=== PATIENT | female | born 1970 | race African-American/Black ===

== ENCOUNTER → 2017-10-03 | Outpatient (CLI) | payer BC ==
[2017-10-03 09:17] LABS: ABSOLUTE LYMPHOCYTES (AUTO) 3.1 10^3/uL (0.5-4.7); ABSOLUTE MONOCYTES (AUTO) 0.8 10^3/uL (0.1-1.4); ABSOLUTE NEUT (AUTO) 3.7 10^3/uL (1.7-8.2); BASOPHILS % (AUTO) 0.4 % (0-2); EOSINOPHILS % (AUTO) 0.6 % (0-6); HEMATOCRIT 34.8 % (36.0-47.0); HEMOGLOBIN 11.3 g/dL (12.0-15.5); LYMPHOCYTES % (AUTO) 40.7 % (13-45); MEAN CORPUSCULAR HGB CONC 32.4 g/dL (32.0-36.0); MEAN CORPUSCULAR VOLUME 71 fl (80-97); MONOCYTES % (AUTO) 9.8 % (3-13); PLATELET COUNT 296 10^3/uL (150-450); RED BLOOD COUNT 4.92 10^6/uL (3.72-5.28); RED CELL DISTRIBUTION WIDTH 19.4 % (11.5-14.0); SEGMENTED NEUTROPHILS % (AUTO) 48.5 % (42-78); TOTAL CELLS COUNTED % (AUTO) 100 %; WHITE BLOOD COUNT 7.6 10^3/uL (4.0-10.5)
[2017-10-03 09:35] LABS: ALANINE AMINOTRANSFERASE 17 U/L (9-52); ALBUMIN 3.9 g/dL (3.5-5.0); ALKALINE PHOSPHATASE 101 U/L (38-126); ANION GAP 13 (5-19); ASPARTATE AMINO TRANSFERASE 19 U/L (14-36); BILIRUBIN,DIRECT 0.2 mg/dL (0.0-0.4); BILIRUBIN,TOTAL 0.2 mg/dL (0.2-1.3); BLOOD UREA NITROGEN 16 mg/dL (7-20); CALCIUM 9.3 mg/dL (8.4-10.2); CARBON DIOXIDE 27 mmol/L (22-30); CHLORIDE 105 mmol/L (98-107); CHOLESTEROL 230.26 mg/dL (0-200); GLUCOSE 109 mg/dL (75-110); POTASSIUM 4.2 mmol/L (3.6-5.0); SODIUM 144.7 mmol/L (137-145); TOTAL PROTEIN 7.9 g/dL (6.3-8.2); TRIGLYCERIDES 92 mg/dL (<150)
[2017-10-03 09:45] LABS: DIRECT LDL 162 mg/dL (<100)
== END ==
LOC: OD 08:18
PROVIDERS: ATTEND Internal Medicine
DX: Z68.41 Body mass index [BMI] 40.0-44.9, adult (principal)
CPT/HCPCS: 36415; 80053; 80061; 82652; 83735; 84443; 85025

== ENCOUNTER → 2018-03-30 | Outpatient (CLI) | payer BC ==
--- NOTE | 2018-03-30 13:06 | RADIOLOGY REPORT (SQ) ---
EXAM DESCRIPTION: CT HEAD WITHOUT COMPLETED DATE/TIME: 03/30/2018 12:46 pm REASON FOR STUDY: TIA (G45.9) I63.9 CEREBRAL INFARCTION, UNSPECIFIED COMPARISON: None. TECHNIQUE: Axial images acquired through the brain without intravenous contrast. Images reviewed wi th bone, brain and subdural windows. Additional sagittal and coronal reconstructions were generated. Images stored on PACS. All CT scanners at this facility use dose modulation, iterative reconstruction, and/or weight based d osing when appropriate to reduce radiation dose to as low as reasonably achievable (ALARA). [facility]: Dose Right [facility]: CareDose [facility]: Dose Right [facility]: Teradose 4D [facility]: Smart [employer]Ride RADIATION DOSE: CT Rad equipment meets quality standard of care and radiation dose reduction techniq ues were employed. CTDIvol: 48.6 mGy. DLP: 929 mGy-cm. mGy. LIMITATIONS: None. FINDINGS: VENTRICLES: Normal size and contour. CEREBRUM: No masses. No hemorrhage. No midline shift. No evidence for acute infarction. Normal gra y/white matter differentiation. No areas of low density in the white matter. CEREBELLUM: No masses. No hemorrhage. No alteration of density. No evidence for acute infarction. EXTRAAXIAL SPACES: No fluid collections. No masses. ORBITS AND GLOBE: No intra- or extraconal masses. Normal contour of globe without masses. CALVARIUM: No fracture. PARANASAL SINUSES: No fluid levels. SOFT TISSUES: No mass or hematoma. OTHER: No other significant finding. IMPRESSION: NORMAL BRAIN CT WITHOUT CONTRAST. EVIDENCE OF ACUTE STROKE: NO. COMMENT: Quality ID # [id number]: Final reports with documentation of one or more dose reduction techniques (e.g., Automated exposure control, adjustment of the mA and/or kV according to patient size, use of iterative reconstruction technique) TECHNICAL DOCUMENTATION: JOB ID: [id number] [employer]- All Rights Reserved Reading location - IP/workstation name: [email or web address]
== END ==
LOC: RAD 12:23
PROVIDERS: ATTEND Internal Medicine
DX: G45.9 Transient cerebral ischemic attack, unspecified (principal)
CPT/HCPCS: 70450

== ENCOUNTER → 2018-08-27 | Outpatient (CLI) | payer BC ==
[2018-08-27 18:22] LABS: A TYPE INFLUENZA AG NEGATIVE (NEGATIVE); B INFLUENZA AG NEGATIVE (NEGATIVE)
== END ==
LOC: OD 16:50
PROVIDERS: ATTEND Internal Medicine
DX: J11.1 Influenza due to unidentified influenza virus with other respiratory manifestations (principal)
CPT/HCPCS: 87804

== ENCOUNTER 2019-02-22 08:10 | Inpatient (IN) | payer BC ==
[2019-02-22] MEDS ORDERED: LABETALOL HCL INJ 20 MG/4 ML DISP.SYRIN IV ONE ×2 (08:27→08:28)
--- NOTE | 2019-02-22 08:36 | ER Document Report ---
ED Neuro Symptoms/Deficit - General Chief Complaint: Slurred Speech Stated Complaint: SLURRED SPEECH,CONFUSION Time Seen by Provider: 02/22/19 08:18 Notes: 48-year-old female with hypertension and positive family history for CVA to include mother and sibling presents to the emergency department with slurred speech, right-sided weakness, right-sided facial droop. Last known normal 12:30 AM February 22. Daughter at bedside providing some history. She said they noticed slurred speech and right-sided weakness when she woke up. Patient had difficulty ambulating. TRAVEL OUTSIDE OF THE [place] IN LAST 30 DAYS: No - Related Data Allergies/Adverse Reactions: No Known Allergies Allergy (Verified 02/22/19 09:17) Past Medical History - Social History Smoking Status: Unknown if Ever Smoked Family History: CVA, Hypertension Review of Systems - Review of Systems Constitutional: No symptoms reported EENT: No symptoms reported Cardiovascular: See HPI Respiratory: No symptoms reported Gastrointestinal: No symptoms reported Genitourinary: No symptoms reported Female Genitourinary: No symptoms reported Musculoskeletal: No symptoms reported Skin: No symptoms reported Hematologic/Lymphatic: No symptoms reported Neurological/Psychological: See HPI Physical Exam - Vital signs Vitals: Temp Pulse Resp BP Pulse Ox 98.1 F 80 18 171/112 H 97 02/22/19 08:23 02/22/19 08:23 02/22/19 08:23 02/22/19 08:23 02/22/19 08:23 - Notes Notes: PHYSICAL EXAMINATION: Reviewed vital signs and charting by RN GENERAL: Alert, interacts well. No acute distress. HEAD: Normocephalic, atraumatic. EYES: Pupils equal and round. Extraocular movements intact. ENT: Oral mucosa moist, tongue midline. NECK: Full range of motion. Trachea midline. LUNGS: Clear to auscultation bilaterally, no wheezes, rales, or rhonchi. No respiratory distress. HEART: Regular rate and rhythm. No murmur ABDOMEN: soft, non-tender. No distention. Bowel sounds present EXTREMITIES: Moves all 4 extremities spontaneously. No edema, No cyanosis. NEURO: A &O X 3, slurred speech, PERRL, EOMI, SILT, follows commands in all 4 extremities, no gross abnormalities of cranial nerves, facial droop, mild right pronator drift PSYCH: Normal affect, normal mood. SKIN: Warm, dry, normal turgor. No rashes or lesions noted. Course - Re-evaluation Re-evalutation: 02/22/19 09:00 Patient presents with concerns for an acute CVA presenting 8 hours from last known normal. CT head without negative for any acute intracranial bleed. Mends score 7, NIH score 9. 02/22/19 10:24 Discussed with attending and a CTA head and neck was ordered to ensure there is no large vessel occlusion which could be amendable to an intervention. This is still pending. Patient mildly anemic with mildly elevated coagulation factors. CMP hemolyzed and is still pending. No improvement in neurological symptoms at this time. 02/22/19 12:55 CMP overall within normal limits, CTA head and neck did not show any large vessel occlusion. I spoke with Dr. Hawthorne who accepted the patient to the [facility] and asked that I do consult neurology for any further guidance. I spoke with Dr. Wolff, neurologist at [facility], who stated that it will be medical management but to consider a hypercoagulable work-up. I relayed this information to Dr. Hawthorne and the patient is admitted to the [facility]. - Vital Signs Vital signs: Temp Pulse Resp BP Pulse Ox 98.1 F 80 16 193/119 H 98 02/22/19 08:23 02/22/19 08:23 02/22/19 12:02 02/22/19 12:02 02/22/19 12:02 - Laboratory Result Diagrams: 02/22/19 08:33 02/22/19 09:43 Laboratory results interpreted by me: 02/22/19 02/22/19 02/22/19 08:26 08:33 08:33 Hgb 10.8 L Hct 33.5 L MCV 74 L MCH 23.8 L RDW 18.6 H Baso % (Auto) 2.5 H PT 15.8 H APTT 23.4 L POC Glucose 115 H Creatine Kinase 02/22/19 09:43 Hgb Hct MCV MCH RDW Baso % (Auto) PT APTT POC Glucose Creatine Kinase 156 H Discharge - Discharge Clinical Impression: CVA (cerebral vascular accident) Qualifiers: CVA mechanism: unspecified Qualified Code(s): I63.9 - Cerebral infarction, unspecified Condition: Stable Disposition: ADMITTED INPATIENT Admitting Provider: Marine (Hospitalist) Unit Admitted: IMCU
--- NOTE | 2019-02-22 08:42 | RADIOLOGY REPORT (SQ) ---
EXAM DESCRIPTION: CT HEAD WITHOUT COMPLETED DATE/TIME: 02/22/2019 8:26 am REASON FOR STUDY: concern CVA COMPARISON: None. TECHNIQUE: Axial images acquired through the brain without intravenous contrast. Images reviewed wi th bone, brain and subdural windows. Additional sagittal and coronal reconstructions were generated. Images stored on PACS. All CT scanners at this facility use dose modulation, iterative reconstruction, and/or weight based d osing when appropriate to reduce radiation dose to as low as reasonably achievable (ALARA). [facility]: Dose Right [facility]: CareDose [facility]: Dose Right [facility]: Teradose 4D [facility]: [employer] RADIATION DOSE: 990 mGy cm LIMITATIONS: None. FINDINGS: VENTRICLES: Normal size and contour. CEREBRUM: No masses. No hemorrhage. No midline shift. No evidence for acute infarction. Normal gra y/white matter differentiation. No areas of low density in the white matter. CEREBELLUM: No masses. No hemorrhage. No alteration of density. No evidence for acute infarction. EXTRAAXIAL SPACES: No fluid collections. No masses. ORBITS AND GLOBE: No intra- or extraconal masses. Normal contour of globe without masses. CALVARIUM: No fracture. PARANASAL SINUSES: No fluid or mucosal thickening. SOFT TISSUES: No mass or hematoma. OTHER: No other significant finding. IMPRESSION: No CT evidence of acute stroke or hemorrhage. EVIDENCE OF ACUTE STROKE: NO. COMMENT: Quality ID # 436: Final reports with documentation of one or more dose reduction techniques (e.g., Automated exposure control, adjustment of the mA and/or kV according to patient size, use of iterative reconstruction technique) TECHNICAL DOCUMENTATION: JOB ID: [id number] [employer]- All Rights Reserved Reading location - IP/workstation name: [email or web address]
[2019-02-22 08:48] LABS: ABSOLUTE BASOPHILS # (AUTO) 0.2 10^3/uL (0.0-0.2); ABSOLUTE EOSINOPHILS # (AUTO) 0.1 10^3/uL (0.0-0.6); ABSOLUTE LYMPHOCYTES (AUTO) 2.5 10^3/uL (0.5-4.7); ABSOLUTE MONOCYTES (AUTO) 0.5 10^3/uL (0.1-1.4); ABSOLUTE NEUT (AUTO) 3.8 10^3/uL (1.7-8.2); BASOPHILS % (AUTO) 2.5 % (0-2); HEMATOCRIT 33.5 % (36.0-47.0); HEMOGLOBIN 10.8 g/dL (12.0-15.5); LYMPHOCYTES % (AUTO) 35.5 % (13-45); MEAN CORPUSCULAR HEMOGLOBIN 23.8 pg (27.0-33.4); MEAN CORPUSCULAR HGB CONC 32.3 g/dL (32.0-36.0); MEAN CORPUSCULAR VOLUME 74 fl (80-97); MONOCYTES % (AUTO) 6.8 % (3-13); RED BLOOD COUNT 4.55 10^6/uL (3.72-5.28); RED CELL DISTRIBUTION WIDTH 18.6 % (11.5-14.0); SEGMENTED NEUTROPHILS % (AUTO) 54.2 % (42-78); TOTAL CELLS COUNTED % (AUTO) 100 %
[2019-02-22 08:50] LABS: INTERNATIONAL RATION (INR) 1.25; PROTHROMBIN TIME 15.8 SEC (11.4-15.4)
[2019-02-22 08:51] LABS: PARTIAL THROMBOPLASTIN TIME 23.4 SEC (23.5-35.8)
[2019-02-22 09:05] LABS: PLATELET COUNT 339 10^3/uL (150-450)
[2019-02-22] MEDS ORDERED: ACETAMINOPHEN 650 MG SUPP.RECT PR ONE (09:26)
--- NOTE | 2019-02-22 09:38 | RADIOLOGY REPORT (SQ) ---
EXAM DESCRIPTION: CHEST SINGLE VIEW COMPLETED DATE/TIME: 02/22/2019 9:01 am REASON FOR STUDY: CVA COMPARISON: None. NUMBER OF VIEWS: One view. TECHNIQUE: Single frontal radiographic view of the chest acquired. LIMITATIONS: None. FINDINGS: LUNGS AND PLEURA: No opacities, masses or pneumothorax. No pleural effusion. MEDIASTINUM AND HILAR STRUCTURES: No masses. Contour normal. HEART AND VASCULAR STRUCTURES: Heart normal in size. Normal vasculature. BONES: No acute findings. HARDWARE: None in the chest. OTHER: No other significant finding. IMPRESSION: NO SIGNIFICANT RADIOGRAPHIC FINDING IN THE CHEST. TECHNICAL DOCUMENTATION: JOB ID: [id number] [employer]- All Rights Reserved Reading location - IP/workstation name: [email or web address]
[2019-02-22] MEDS ORDERED: FENTANYL CITRATE INJ/PF 100 MCG/2 ML AMPUL IV ONE (09:52)
[2019-02-22 10:09] LABS: APPEARANCE,URINE CLEAR; BILIRUBIN,URINE NEGATIVE (NEGATIVE); COLOR,URINE STRAW; GLUCOSE, URINE NEGATIVE (NEGATIVE); KETONES,URINE NEGATIVE (NEGATIVE); LEUKOCYTE ESTERASE,URINE NEGATIVE (NEGATIVE); NITRITE,URINE NEGATIVE (NEGATIVE); PROTEIN,URINE NEGATIVE (NEGATIVE); URINE SPECIFIC GRAVITY 1.009; UROBILINOGEN,URINE NEGATIVE mg/dL (<2.0)
[2019-02-22 10:51] LABS: ALBUMIN 3.8 g/dL (3.5-5.0); ALKALINE PHOSPHATASE 107 U/L (38-126); ANION GAP 10 (5-19); ASPARTATE AMINO TRANSFERASE 24 U/L (14-36); BILIRUBIN,DIRECT 0.2 mg/dL (0.0-0.4); BILIRUBIN,TOTAL 0.3 mg/dL (0.2-1.3); BLOOD UREA NITROGEN 10 mg/dL (7-20); CARBON DIOXIDE 26 mmol/L (22-30); CHLORIDE 104 mmol/L (98-107); CREATINE KINASE 156 U/L (30-135); GLUCOSE 110 mg/dL (75-110); POTASSIUM 3.6 mmol/L (3.6-5.0); TOTAL PROTEIN 7.7 g/dL (6.3-8.2)
--- NOTE | 2019-02-22 12:18 | RADIOLOGY REPORT (SQ) ---
EXAM DESCRIPTION: CTA HEAD COMPLETED DATE/TIME: 02/22/2019 11:59 am REASON FOR STUDY: ?cva COMPARISON: None. TECHNIQUE: Post IV contrast scanning, thin section axial imaging through the brain to evaluate the a rterial structures. Source and MIP images are saved and reviewed on PACS. Advanced 3D imaging as volume-rendering, MIPs, SSD performed? yes All CT scanners at this facility use dose modulation, iterative reconstruction, and/or weight based d osing when appropriate to reduce radiation dose to as low as reasonably achievable (ALARA). [facility]: Dose Right [facility]: CareDose [facility]: Dose Right [facility]: Teradose 4D [facility]: [employer] CONTRAST TYPE AND DOSE: contrast/concentration: Isovue 350.00 mg/ml; Total Contrast Delivered: 70.0 ml; Total Saline Delivered: 65.5 ml RENAL FUNCTION: GFR > 60. LIMITATIONS: None. FINDINGS: [place]: The anterior, middle, posterior cerebral arteries are all patent. No ev idence of aneurysm or focal stenosis. POSTERIOR CIRCULATION: The distal vertebral arteries are patent as is the basilar artery. No aneurysm . BRAIN: No gross enhancing lesions as visualized. The superior cerebral hemispheres are not included in the field of view. BONES: Intact as visualized. SINUSES: No fluid or mucosal thickening. OTHER: No other significant finding. IMPRESSION: NO CTA EVIDENCE OF STENOSIS OR ANEURYSM OF THE [place]. TECHNICAL DOCUMENTATION: JOB ID: [id number] Quality ID # 436: Final reports with documentation of one or more dose reduction techniques (e.g., Au tomated exposure control, adjustment of the mA and/or kV according to patient size, use of iterative reconstruction technique) 2010 [employer]- All Rights Reserved Reading location - IP/workstation name: [email or web address]
--- NOTE | 2019-02-22 12:20 | RADIOLOGY REPORT (SQ) ---
EXAM DESCRIPTION: CTA NECK COMPLETED DATE/TIME: 02/22/2019 11:59 am REASON FOR STUDY: ?cva COMPARISON: None. TECHNIQUE: Axial dynamic scanning technique with dynamic contrast enhancement through the extra-barrel scraper nial carotid and vertebral arteries. Multiplanar reconstruction. 3-D MIPS and Volume-rendered imag es acquired at the workstation and saved to PACS. Images are reviewed in soft tissue, bone, lung w indows. All CT scanners at this facility use dose modulation, iterative reconstruction, and/or weight based d osing when appropriate to reduce radiation dose to as low as reasonably achievable (ALARA). [facility]: Dose Right [facility]: CareDose [facility]: Dose Right [facility]: Teradose 4D [facility]: Rewind Me CONTRAST TYPE AND DOSE: See separate report of the same date. RENAL FUNCTION: GFR > 60. LIMITATIONS: None. FINDINGS: AORTIC ARCH: Normal three-vessel origin. Bilateral subclavian arteries are patent. No d issection. RIGHT CAROTIDS: Patent common, internal and external carotid arteries without suggestion of significa nt stenosis or irregular plaque. No dissection. RIGHT VERTEBRAL: Patent. No dissection. LEFT CAROTIDS: Patent common, internal and external carotid arteries without suggestion of significan t stenosis or irregular plaque. Tonsillar loop left ICA. No dissection. LEFT VERTEBRAL: Patent. No dissection. OTHER: No other significant finding. OTHER: 3-D reconstructions confirm findings. IMPRESSION: NORMAL CTA OF THE EXTRA-CRANIAL CAROTID AND VERTEBRAL ARTERIES. COMMENT: Quality ID #[id number]: Measurements of distal internal carotid diameter were used as the denomina tor for stenosis measurement. TECHNICAL DOCUMENTATION: JOB ID: [id number] Quality ID # 436: Final reports with documentation of one or more dose reduction techniques (e.g., Au tomated exposure control, adjustment of the mA and/or kV according to patient size, use of iterative reconstruction technique) 2010 [employer]- All Rights Reserved Reading location - IP/workstation name: [email or web address]
[2019-02-22] MEDS ORDERED: HYDRALAZINE HCL INJ/PF 20 MG/1 ML SDV IV PRN (13:14)
[2019-02-22] MEDS ORDERED: KETOROLAC TROMETHAMINE INJ/PF 30 MG/1 ML SDV IV PRN (13:31)
--- NOTE | 2019-02-22 13:31 | PDOC H&P ---
History of Present Illness Admission Date/PCP: 02/22/19 13:02 Patient complains of: RSW, slurred speech History of Present Illness: CJ CLIFFORD is a 48 year old female with a past medical history of hypertension and hyperlipidemia who presented with right-sided weakness and slurred speech. Patient's daughters are on the bedside. They report that she was apparently fine and went to bed last night at around 12 AM. They noticed that when she woke up around 6 this morning, she was having slurred speech and was not able to move her right arm and right leg well. In the ER, CT of the head and CT of the head and neck were unremarkable. She was noted to have significant elevated blood pressures. Upon encounter, her speech seems to have significantly im proved. She has 3/5 weakness on the right arm and and 4/5 on the right leg. She says that she feels her right arm and leg are a bit stronger now. She denies chest pain or shortness of breath. She relates that her brother had a stroke in his 30s and her mother also had a stroke in her late 40s. She does admit that she has not been well compliant to his antihypertensives at home. Past Medical History Cardiac Medical History: Reports: Hyperlipidema, Hypertension Past Surgical History Past Surgical History: Reports: Section Social History Smoking Status: Unknown if Ever Smoked Family History Family History: CVA, Hypertension Parental Family History Reviewed: Yes - History of CVA in the family as noted above Children Family History Reviewed: No Sibling(s) Family History Reviewed.: No Medication/Allergy Allergies/Adverse Reactions: No Known Allergies Allergy (Verified 02/22/19 09:17) Review of Systems All systems: reviewed and no additional remarkable complaints except as stated - As mentioned in HPI Physical Exam Vital Signs: Temp Pulse Resp BP Pulse Ox 98.1 F 80 16 193/119 H 98 02/22/19 08:23 02/22/19 08:23 02/22/19 12:02 02/22/19 12:02 02/22/19 12:02 Intake & Output 02/21/19 02/22/19 02/23/19 06:59 06:59 06:59 Weight 196 lb 6.91 oz General appearance: PRESENT: no acute distress, well-developed, well-nourished Head exam: PRESENT: atraumatic, normocephalic Eye exam: PRESENT: conjunctiva pink, EOMI, PERRLA. ABSENT: scleral icterus Ear exam: PRESENT: normal external ear exam Mouth exam: PRESENT: moist, tongue midline Neck exam: ABSENT: carotid bruit, JVD, lymphadenopathy, thyromegaly Respiratory exam: PRESENT: clear to auscultation michael. ABSENT: rales, rhonchi, wheezes Cardiovascular exam: PRESENT: RRR. ABSENT: diastolic murmur, rubs, systolic murmur Pulses: PRESENT: normal dorsalis pedis pul GI/Abdominal exam: PRESENT: normal bowel sounds, soft. ABSENT: distended, guarding, mass, organolmegaly, rebound, tenderness Rectal exam: PRESENT: deferred Neurological exam: PRESENT: alert, awake, oriented to person, oriented to place, oriented to time, oriented to situation, motor sensory deficit - She has 3/5 weakness on the right arm and and 4/5 on the right leg. Results Laboratory Results: 02/22/19 08:33 02/22/19 09:43 02/22/19 02/22/19 02/22/19 08:33 08:33 09:42 WBC 7.0 RBC 4.55 Hgb 10.8 L Hct 33.5 L MCV 74 L MCH 23.8 L MCHC 32.3 RDW 18.6 H Plt Count 339 Seg Neutrophils % 54.2 Sodium Cancelled Potassium Cancelled Chloride Cancelled Carbon Dioxide Cancelled Anion Gap Cancelled BUN Cancelled Creatinine Cancelled Est GFR ( Amer) Cancelled Est GFR (Non-Af Amer) Cancelled Glucose Cancelled Calcium Cancelled Total Bilirubin Cancelled AST Cancelled Alkaline Phosphatase Cancelled Total Protein Cancelled Albumin Cancelled Urine Color STRAW Urine Appearance CLEAR Urine pH 7.0 Ur Specific Sumner 1.009 Urine Protein NEGATIVE Urine Glucose (UA) NEGATIVE Urine Ketones NEGATIVE Urine Blood NEGATIVE Urine Nitrite NEGATIVE Ur Leukocyte Esterase NEGATIVE Urine WBC (Auto) 0 Urine RBC (Auto) 0 02/22/19 09:43 WBC RBC Hgb Hct MCV MCH MCHC RDW Plt Count Seg Neutrophils % Sodium 139.9 Potassium 3.6 Chloride 104 Carbon Dioxide 26 Anion Gap 10 BUN 10 Creatinine 0.73 Est GFR ( Amer) > 60 Est GFR (Non-Af Amer) Glucose 110 Calcium 9.0 Total Bilirubin 0.3 AST 24 Alkaline Phosphatase 107 Total Protein 7.7 Albumin 3.8 Urine Color Urine Appearance Urine pH Ur Specific [place] Urine Protein Urine Glucose (UA) Urine Ketones Urine Blood Urine Nitrite Ur Leukocyte Esterase Urine WBC (Auto) Urine RBC (Auto) 02/22/19 02/22/19 02/22/19 08:33 08:33 09:43 Creatine Kinase Cancelled 156 H Troponin I Cancelled 02/22/19 10:22 Creatine Kinase Troponin I < 0.012 Impressions: Head CT 02/22/19 08:20 IMPRESSION: No CT evidence of acute stroke or hemorrhage. EVIDENCE OF ACUTE STROKE: NO. Chest X-Ray 02/22/19 08:24 IMPRESSION: NO SIGNIFICANT RADIOGRAPHIC FINDING IN THE CHEST. Head CTA 02/22/19 08:46 IMPRESSION: NO CTA EVIDENCE OF STENOSIS OR ANEURYSM OF THE [place]. Neck CTA 02/22/19 08:46 IMPRESSION: NORMAL CTA OF THE EXTRA-CRANIAL CAROTID AND VERTEBRAL ARTERIES. Assessment and Plan - Diagnosis (1) Acute CVA (cerebrovascular accident) Is this a current diagnosis for this admission?: Yes Plan: She has 3/5 weakness on the right arm and and 4/5 on the right leg. CT and CT of the head and neck are unremarkable. Will pursue an MRI. Will check cholesterol panel as well. She has noncompliance to her antihypertensive regimen however she does have a strong family history of early onset CVA, will pursue a hypercoagulable work-up. Will start patient on aspirin and statin. Will optimize blood pressure control. (2) Hypertensive urgency Is this a current diagnosis for this admission?: Yes Plan: Initial BP in the 190/100s. She was given IV labetalol. Will give a dose of IV hydralazine. Will consider starting a nicardipine drip if her BP continue to be severely elevated. (3) Hyperlipidemia Is this a current diagnosis for this admission?: Yes (4) HTN (hypertension) Is this a current diagnosis for this admission?: Yes - Time Time Spent with patient: 25-34 minutes
--- NOTE | 2019-02-22 13:41 | EKG REPORT ---
SEVERITY:- ABNORMAL ECG - SINUS RHYTHM BORDERLINE LEFT AXIS DEVIATION ABNRM R PROG, CONSIDER ASMI OR LEAD PLACEMENT : Confirmed by: Kumar Jay MD 22-Feb-2019 13:39:55
--- NOTE | 2019-02-22 13:47 | ADVANCED CARE ---
- Diagnosis (1) Acute CVA (cerebrovascular accident) Diagnosis Current: Yes (2) HTN (hypertension) Diagnosis Current: Yes (3) Hyperlipidemia Diagnosis Current: Yes (4) Hypertensive urgency Diagnosis Current: Yes Resuscitation Status: Full Code Discussion: Discussed with patient and daughters at bedside. She says she is a Full Code and prefers to receive chest compressions, defibrillation or mechanical ventilation if the need arises. She says that her eldest daughter Elizabeth, is her surrogate medical decision maker.
[2019-02-22] MEDS ORDERED: HYDRALAZINE HCL INJ/PF 20 MG/1 ML SDV IV ONE (13:50)
[2019-02-22 14:07] LABS: CHOLESTEROL 221.75 mg/dL (0-200); TRIGLYCERIDES 71 mg/dL (<150)
[2019-02-22] MEDS: HEPARIN SOD (PORCINE) 5,000 UNIT/ML 1 ML VIAL SUBCUT SCH ×2 (14:15→21:50)
[2019-02-22] MEDS: LOSARTAN POTASSIUM 50 MG TABLET PO SCH (14:15)
[2019-02-22 14:18] LABS: DIRECT LDL 164 mg/dL (<100)
[2019-02-22] MEDS: ACETAMINOPHEN 325 MG TABLET PO PRN (20:45)
[2019-02-22] MEDS: ATORVASTATIN CALCIUM 40 MG TABLET PO SCH (21:50)
[2019-02-23] MEDS: HEPARIN SOD (PORCINE) 5,000 UNIT/ML 1 ML VIAL SUBCUT SCH ×3 (06:22→21:47)
--- NOTE | 2019-02-23 07:39 | PDOC PROGRESS REPORT ---
Subjective Progress Note for:: 02/23/19 Subjective:: 02/23/2019-no complaints Reason For Visit: CVA Physical Exam Vital Signs: Temp Pulse Resp BP Pulse Ox 97.8 F 80 12 149/89 H 100 02/23/19 03:15 02/23/19 07:00 02/23/19 04:00 02/23/19 04:00 02/23/19 04:00 Intake & Output 02/22/19 02/23/19 02/24/19 06:59 06:59 06:59 Intake Total 840 Balance 840 Weight 90.7 kg General appearance: PRESENT: no acute distress, well-developed, well-nourished Neck exam: ABSENT: carotid bruit, JVD, lymphadenopathy, thyromegaly Respiratory exam: PRESENT: clear to auscultation michael. ABSENT: rales, rhonchi, wheezes Cardiovascular exam: PRESENT: RRR. ABSENT: diastolic murmur, rubs, systolic murmur Pulses: PRESENT: normal dorsalis pedis pul Vascular exam: PRESENT: normal capillary refill GI/Abdominal exam: PRESENT: normal bowel sounds, soft. ABSENT: distended, guarding, mass, organolmegaly, rebound, tenderness Rectal exam: PRESENT: deferred Extremities exam: PRESENT: full ROM. ABSENT: calf tenderness, clubbing, pedal edema Neurological exam: PRESENT: alert, awake, oriented to person, oriented to place, oriented to time, oriented to situation, CN II-XII grossly intact. ABSENT: motor sensory deficit Psychiatric exam: PRESENT: appropriate affect, normal mood. ABSENT: homicidal ideation, suicidal ideation Skin exam: PRESENT: dry, intact, warm. ABSENT: cyanosis, rash Results Laboratory Results: 02/22/19 08:33 02/22/19 09:43 02/22/19 02/22/19 02/22/19 08:33 08:33 09:42 WBC 7.0 RBC 4.55 Hgb 10.8 L Hct 33.5 L MCV 74 L MCH 23.8 L MCHC 32.3 RDW 18.6 H Plt Count 339 Seg Neutrophils % 54.2 Sodium Cancelled Potassium Cancelled Chloride Cancelled Carbon Dioxide Cancelled Anion Gap Cancelled BUN Cancelled Creatinine Cancelled Est GFR ( Amer) Cancelled Est GFR (Non-Af Amer) Cancelled Glucose Cancelled Calcium Cancelled Total Bilirubin Cancelled AST Cancelled Alkaline Phosphatase Cancelled Total Protein Cancelled Albumin Cancelled Triglycerides Cholesterol LDL Cholesterol Direct VLDL Cholesterol HDL Cholesterol Urine Color STRAW Urine Appearance CLEAR Urine pH 7.0 Ur Specific [place] 1.009 Urine Protein NEGATIVE Urine Glucose (UA) NEGATIVE Urine Ketones NEGATIVE Urine Blood NEGATIVE Urine Nitrite NEGATIVE Ur Leukocyte Esterase NEGATIVE Urine WBC (Auto) 0 Urine RBC (Auto) 0 02/22/19 02/22/19 09:43 09:43 WBC RBC Hgb Hct MCV MCH MCHC RDW Plt Count Seg Neutrophils % Sodium 139.9 Potassium 3.6 Chloride 104 Carbon Dioxide 26 Anion Gap 10 BUN 10 Creatinine 0.73 Est GFR ( Amer) > 60 Est GFR (Non-Af Amer) Glucose 110 Calcium 9.0 Total Bilirubin 0.3 AST 24 Alkaline Phosphatase 107 Total Protein 7.7 Albumin 3.8 Triglycerides 71 Cholesterol 221.75 H LDL Cholesterol Direct 164 H VLDL Cholesterol 14.0 HDL Cholesterol 34 L Urine Color Urine Appearance Urine pH Ur Specific [place] Urine Protein Urine Glucose (UA) Urine Ketones Urine Blood Urine Nitrite Ur Leukocyte Esterase Urine WBC (Auto) Urine RBC (Auto) 02/22/19 02/22/19 02/22/19 08:33 08:33 09:43 Creatine Kinase Cancelled 156 H Troponin I Cancelled 02/22/19 10:22 Creatine Kinase Troponin I < 0.012 Impressions: Head CT 02/22/19 08:20 IMPRESSION: No CT evidence of acute stroke or hemorrhage. EVIDENCE OF ACUTE STROKE: NO. Chest X-Ray 02/22/19 08:24 IMPRESSION: NO SIGNIFICANT RADIOGRAPHIC FINDING IN THE CHEST. Head CTA 02/22/19 08:46 IMPRESSION: NO CTA EVIDENCE OF STENOSIS OR ANEURYSM OF THE [place] OF [place]. Neck CTA 02/22/19 08:46 IMPRESSION: NORMAL CTA OF THE EXTRA-CRANIAL CAROTID AND VERTEBRAL ARTERIES. Assessment and Plan - Diagnosis (1) Acute CVA (cerebrovascular accident) Is this a current diagnosis for this admission?: Yes Plan: She has 3/5 weakness on the right arm and and 4/5 on the right leg. CT and CT of the head and neck are unremarkable. Will pursue an MRI. Will check cholesterol panel as well. She has noncompliance to her antihypertensive zheng men however she does have a strong family history of early onset CVA, will pursue a hypercoagulable work-up. Will start patient on aspirin and statin. Will optimize blood pressure control. 02/23/2019-weakness has resolved at this time. Awaiting head CT. Also hypercoagulopathy work-up. We will continue to follow make changes plan of care as appropriate (2) Hypertensive urgency Is this a current diagnosis for this admission?: Yes Plan: Initial BP in the 190/100s. She was given IV labetalol. Will give a dose of IV hydralazine. Will consider starting a nicardipine drip if her BP continue to be severely elevated. 02/23/2019-improved. Blood pressure 140s over 80s. We will continue to follow home medications at this time. (3) Hyperlipidemia Is this a current diagnosis for this admission?: Yes Plan: 02/23/2019-continue treatment from home (4) HTN (hypertension) Is this a current diagnosis for this admission?: Yes Plan: 02/23/2019-stable at this time continue to follow - Time Time Spent with patient: 15-24 minutes - Inpatient Certification Based on my medical assessment, after consideration of the patient's c omorbidities, presenting symptoms, or acuity I expect that the services needed warrant INPATIENT care.: Yes I certify that my determination is in accordance with my understanding of Medicare's requirements for reasonable and necessary INPATIENT services [42 CFR 412.3e].: Yes Medical Necessity: Significant Comorbidiites Make Outpatient Treatment Too Risky, Need Close Monitoring Due to Risk of Patient Decompensation
[2019-02-23] MEDS: LISINOPRIL 10 MG TABLET PO SCH (09:34)
[2019-02-23] MEDS: LOSARTAN POTASSIUM 50 MG TABLET PO SCH (09:34)
[2019-02-23] MEDS: ASPIRIN 81 MG TABLET, CHEWABLE PO SCH (09:34)
[2019-02-23] MEDS: HYDROCHLOROTHIAZIDE 12.5 MG TABLET PO SCH (09:34)
[2019-02-23] MEDS ORDERED: (PENDING PHARMACY ID) (Lisinopril/Hydrochlorothiazide [Lisinopril-Hctz 20-12.5 Mg Tab] 1 E PO SCH (10:00)
--- NOTE | 2019-02-23 13:43 | RADIOLOGY REPORT (SQ) ---
EXAM DESCRIPTION: MRI HEAD WITHOUT COMPLETED DATE/TIME: 02/22/2019 9:39 pm REASON FOR STUDY: RSW, slurred speech, normal CT COMPARISON: 02/22/2019 TECHNIQUE: Multiplanar imaging includes non-contrasted T1, T2, FLAIR, and diffusion with ADC map seq uences. Images stored on PACS. LIMITATIONS: None. FINDINGS: ANATOMY: No anomalies. Normal vascular flow voids. Pituitary fossa normal. CSF SPACES: Normal in size and contour. No hemorrhage. CEREBRUM: Sulci and gyri normal in size and contour. Normal white matter signal on FLAIR imaging. No evidence of hemorrhage, mass, or extraaxial fluid collection. POSTERIOR FOSSA: No signal alteration. No hemorrhage. No edema, masses or mass effect. Internal cailin tory canals, cerebello-pontine angles, mastoids normal. DIFFUSION IMAGING: Negative for acute or sub-acute infarction. ORBITS: No masses. Globes normal. PARANASAL SINUSES: No fluid levels. Mucosa normal. OTHER: No other significant finding. IMPRESSION: No evidence of acute infarct or other intracranial abnormality. EVIDENCE OF ACUTE STROKE: NO. TECHNICAL DOCUMENTATION: JOB ID: [id number] [employer]- All Rights Reserved Reading location - IP/workstation name: [email or web address]
[2019-02-23] MEDS: ATORVASTATIN CALCIUM 40 MG TABLET PO SCH (21:47)
[2019-02-24] MEDS: HEPARIN SOD (PORCINE) 5,000 UNIT/ML 1 ML VIAL SUBCUT SCH ×2 (05:04→13:23)
--- NOTE | 2019-02-24 08:42 | RADIOLOGY REPORT (SQ) ---
EXAM DESCRIPTION: CT HEAD WITHOUT COMPLETED DATE/TIME: 02/24/2019 8:23 am REASON FOR STUDY: stroke COMPARISON: CT of the head without contrast from 02/22/2019 TECHNIQUE: Axial images acquired through the brain without intravenous contrast. Images reviewed wi th bone, brain and subdural windows. Additional sagittal and coronal reconstructions were generated. Images stored on PACS. All CT scanners at this facility use dose modulation, iterative reconstruction, and/or weight based d osing when appropriate to reduce radiation dose to as low as reasonably achievable (ALARA). [facility]: Dose Right [facility]: CareDose [facility]: Dose Right [facility]: Teradose 4D [facility]: Siving Egil [place] RADIATION DOSE: CT Rad equipment meets quality standard of care and radiation dose reduction techniq ues were employed. CTDIvol: 48.7 mGy. DLP: 930 mGy-cm. mGy. LIMITATIONS: None. FINDINGS: There is no acute intracranial hemorrhage, vascular territorial infarct, extra-axial fluid collection, mass effect or midline shift. There is no effacement of the cerebral sulci or basal sub arachnoid cisterns. The ceron-white matter differentiation is preserved. The caliber the ventricles is concordant with the degree of sulcation. The orbits and globes are intact. There is no fracture of the calvarium. There is no paranasal sinu s air-fluid level. IMPRESSION: No acute intracranial abnormality. EVIDENCE OF ACUTE STROKE: NO. COMMENT: Quality ID # [id number]: Final reports with documentation of one or more dose reduction techniques (e.g., Automated exposure control, adjustment of the mA and/or kV according to patient size, use of iterative reconstruction technique) TECHNICAL DOCUMENTATION: JOB ID: [id number] [employer]- All Rights Reserved Reading location - IP/workstation name: [email or web address]
--- NOTE | 2019-02-24 08:54 | PDOC PROGRESS REPORT ---
Subjective Progress Note for:: 02/24/19 Subjective:: 02/23/2019-no complaints 02/24/2019-called in the patient room by nurse. Patient having facial droop to the left side and weakness. Reason For Visit: CVA Physical Exam Vital Signs: Temp Pulse Resp BP Pulse Ox 98.6 F 97 16 161/107 H 97 02/24/19 06:49 02/24/19 07:00 02/24/19 06:49 02/24/19 06:49 02/24/19 06:49 Intake & Output 02/23/19 02/24/19 02/25/19 06:59 06:59 06:59 Intake Total 840 770 Balance 840 770 Weight 90.7 kg 90.9 kg General appearance: PRESENT: no acute distress, well-developed, well-nourished Neck exam: ABSENT: carotid bruit, JVD, lymphadenopathy, thyromegaly Respiratory exam: PRESENT: clear to auscultation michael. ABSENT: rales, rhonchi, wheezes Cardiovascular exam: PRESENT: RRR. ABSENT: diastolic murmur, rubs, systolic murmur Pulses: PRESENT: normal dorsalis pedis pul Vascular exam: PRESENT: normal capillary refill GI/Abdominal exam: PRESENT: normal bowel sounds, soft. ABSENT: distended, guarding, mass, organolmegaly, rebound, tenderness Rectal exam: PRESENT: deferred Extremities exam: PRESENT: full ROM. ABSENT: calf tenderness, clubbing, pedal edema Neurological exam: PRESENT: alert, awake, oriented to person, oriented to place, oriented to time, oriented to situation, CN II-XII grossly intact. ABSENT: motor sensory deficit Psychiatric exam: PRESENT: appropriate affect, normal mood. ABSENT: homicidal ideation, suicidal ideation Skin exam: PRESENT: dry, intact, warm. ABSENT: cyanosis, rash Results Laboratory Results: 02/22/19 08:33 02/22/19 09:43 02/22/19 02/22/19 02/22/19 08:33 08:33 09:43 Creatine Kinase Cancelled 156 H Troponin I Cancelled 02/22/19 10:22 Creatine Kinase Troponin I < 0.012 Impressions: Chest X-Ray 02/22/19 08:24 IMPRESSION: NO SIGNIFICANT RADIOGRAPHIC FINDING IN THE CHEST. Head CTA 02/22/19 08:46 IMPRESSION: NO CTA EVIDENCE OF STENOSIS OR ANEURYSM OF THE [place] OF [place]. Neck CTA 02/22/19 08:46 IMPRESSION: NORMAL CTA OF THE EXTRA-CRANIAL CAROTID AND VERTEBRAL ARTERIES. Head MRI 02/22/19 16:25 IMPRESSION: No evidence of acute infarct or other intracranial abnormality. EVIDENCE OF ACUTE STROKE: NO. Head CT 02/24/19 00:00 IMPRESSION: No acute intracranial abnormality. EVIDENCE OF ACUTE STROKE: NO. Assessment and Plan - Diagnosis (1) Acute CVA (cerebrovascular accident) Is this a current diagnosis for this admission?: Yes Plan: She has 3/5 weakness on the right arm and and 4/5 on the right leg. CT and CT of the head and neck are unremarkable. Will pursue an MRI. Will check cholesterol panel as well. She has noncompliance to her antihypertensive regimen however she does have a strong family history of early onset CVA, will pursue a hypercoagulable work-up. Will start patient on aspirin and statin. Will optimize blood pressure control. 02/23/2019-weakness has resolved at this time. Awaiting head CT. Also hypercoagulopathy work-up. We will continue to follow make changes plan of care as appropriate 02/24/2019-called in the patient's room this morning patient having left-sided facial droop with weakness. Unable to smile appropriately. Stat CT of the brain was obtained and negative per my reading awaiting official reading. Will obtain repeat MRI as well. May change plan of care based on findings. Continue aspirin therapy (2) Hypertensive urgency Is this a current diagnosis for this admission?: Yes Plan: Initial BP in the 190/100s. She was given IV labetalol. Will give a dose of IV hydralazine. Will consider starting a nicardipine drip if her BP continue to be severely elevated. 02/23/2019-improved. Blood pressure 140s over 80s. We will continue to follow home medications at this time. 02/24/2019-blood pressure elevated this a.m. with probable CVA event. Continue PRN hydralazine and hold home medications. (3) Hyperlipidemia Is this a current diagnosis for this admission?: Yes Plan: 02/23/2019-continue treatment from home 02/24/2019-continue statin (4) HTN (hypertension) Is this a current diagnosis for this admission?: Yes Plan: 02/23/2019-stable at this time continue to follow 02/24/2019-stable - Time Time Spent with patient: 15-24 minutes - Inpatient Certification I certify that my determination is in accordance with my understanding of Medicare's requirements for reasonable and necessary INPATIENT services [42 CFR 412.3e].: Yes Medical Necessity: Other - Monitor for possible stroke
[2019-02-24] MEDS ORDERED: ASPIRIN 81 MG TABLET, CHEWABLE PO ONE (09:00)
[2019-02-24] MEDS: ASPIRIN 81 MG TABLET, CHEWABLE PO SCH (10:20)
--- NOTE | 2019-02-24 10:22 | RADIOLOGY REPORT (SQ) ---
EXAM DESCRIPTION: MRI HEAD WITHOUT; MRA HEAD WITHOUT COMPLETED DATE/TIME: 02/24/2019 9:53 am REASON FOR STUDY: stroke COMPARISON: MR brain, 02/22/2019 TECHNIQUE: Multiplanar imaging includes non-contrasted T1, T2, FLAIR, and diffusion with ADC map seq uences. Noncontrast [id number] MRA of the brain with multiplanar and 3D reformats. Images stored on PACS. LIMITATIONS: None. FINDINGS: ANATOMY: No anomalies. Normal vascular flow voids. Pituitary fossa normal. CSF SPACES: Normal in size and contour. No hemorrhage. CEREBRUM: Sulci and gyri normal in size and contour. Normal white matter signal on FLAIR imaging. No evidence of hemorrhage, mass, or extraaxial fluid collection. POSTERIOR FOSSA: No signal alteration. No hemorrhage. No edema, masses or mass effect. Internal cailin tory canals, cerebello-pontine angles, mastoids normal. DIFFUSION IMAGING: Negative for acute or sub-acute infarction. ORBITS: No masses. Globes normal. PARANASAL SINUSES: No fluid levels. Mucosa normal. OTHER: No other significant finding. MRA BRAIN: No evidence of intracranial occlusion, stenosis, or aneurysm. IMPRESSION: 1. No noncontrast MR abnormality of the brain. No evidence of acute diffusion restrict ing infarction. 2. Unremarkable MR angiogram of the brain. No evidence of intracranial occlusion, stenosis, or aneu rysm. EVIDENCE OF ACUTE STROKE: NO. TECHNICAL DOCUMENTATION: JOB ID: [id number] [email or web address]- All Rights Reserved Reading location - IP/workstation name: [email or web address]
--- NOTE | 2019-02-24 10:22 | RADIOLOGY REPORT (SQ) ---
EXAM DESCRIPTION: MRI HEAD WITHOUT; MRA HEAD WITHOUT COMPLETED DATE/TIME: 02/24/2019 9:53 am REASON FOR STUDY: stroke COMPARISON: MR brain, 02/22/2019 TECHNIQUE: Multiplanar imaging includes non-contrasted T1, T2, FLAIR, and diffusion with ADC map seq uences. Noncontrast [id number] MRA of the brain with multiplanar and 3D reformats. Images stored on PACS. LIMITATIONS: None. FINDINGS: ANATOMY: No anomalies. Normal vascular flow voids. Pituitary fossa normal. CSF SPACES: Normal in size and contour. No hemorrhage. CEREBRUM: Sulci and gyri normal in size and contour. Normal white matter signal on FLAIR imaging. No evidence of hemorrhage, mass, or extraaxial fluid collection. POSTERIOR FOSSA: No signal alteration. No hemorrhage. No edema, masses or mass effect. Internal cailin tory canals, cerebello-pontine angles, mastoids normal. DIFFUSION IMAGING: Negative for acute or sub-acute infarction. ORBITS: No masses. Globes normal. PARANASAL SINUSES: No fluid levels. Mucosa normal. OTHER: No other significant finding. MRA BRAIN: No evidence of intracranial occlusion, stenosis, or aneurysm. IMPRESSION: 1. No noncontrast MR abnormality of the brain. No evidence of acute diffusion restrict ing infarction. 2. Unremarkable MR angiogram of the brain. No evidence of intracranial occlusion, stenosis, or aneu rysm. EVIDENCE OF ACUTE STROKE: NO. TECHNICAL DOCUMENTATION: JOB ID: [id number] [employer]- All Rights Reserved Reading location - IP/workstation name: [email or web address]
[2019-02-24] MEDS: HYDROCHLOROTHIAZIDE 12.5 MG TABLET PO SCH (10:27)
[2019-02-24] MEDS: LOSARTAN POTASSIUM 50 MG TABLET PO SCH (10:29)
[2019-02-24] MEDS: LISINOPRIL 10 MG TABLET PO SCH (10:29)
[2019-02-24 14:36] LABS: DILUTE RUSSELL VIPOR VENOM 36.4 sec (0.0-47.0)
[2019-02-24 15:04] LABS: LUPUS PANEL INTERPRETATION Comment: (.)
[2019-02-24] MEDS: ATORVASTATIN CALCIUM 40 MG TABLET PO SCH (22:36)
[2019-02-24] MEDS: ACETAMINOPHEN 325 MG TABLET PO PRN (23:25)
[2019-02-25] MEDS: HEPARIN SOD (PORCINE) 5,000 UNIT/ML 1 ML VIAL SUBCUT SCH ×3 (05:14→21:38)
[2019-02-25 07:05] LABS: ANTICARDIOLIPIN IGA AB <9 APL U/mL (0-11); ANTICARDIOLIPIN IGG AB <9 GPL U/mL (0-14); ANTICARDIOLIPIN IGM AB 12 MPL U/mL (0-12)
[2019-02-25] MEDS: LISINOPRIL 10 MG TABLET PO SCH (09:20)
[2019-02-25] MEDS: ASPIRIN 81 MG TABLET, CHEWABLE PO SCH (09:20)
[2019-02-25] MEDS: LOSARTAN POTASSIUM 50 MG TABLET PO SCH (09:20)
[2019-02-25] MEDS: HYDROCHLOROTHIAZIDE 12.5 MG TABLET PO SCH (09:20)
--- NOTE | 2019-02-25 09:28 | PDOC PROGRESS REPORT ---
Subjective Progress Note for:: 02/25/19 Subjective:: 02/23/2019-no complaints 02/24/2019-called in the patient room by nurse. Patient having facial droop to the left side and weakness. 02/25/2019-right calf pain Reason For Visit: CVA Physical Exam Vital Signs: Temp Pulse Resp BP Pulse Ox 97.6 F 90 16 143/89 H 95 02/25/19 08:36 02/25/19 08:36 02/25/19 08:36 02/25/19 08:36 02/25/19 08:36 Intake & Output 02/24/19 02/25/19 02/26/19 06:59 06:59 06:59 Intake Total 770 875 Balance 770 875 Weight 90.9 kg 86.9 kg General appearance: PRESENT: no acute distress, well-developed, well-nourished Neck exam: ABSENT: carotid bruit, JVD, lymphadenopathy, thyromegaly Respiratory exam: PRESENT: clear to auscultation michael. ABSENT: rales, rhonchi, wheezes Cardiovascular exam: PRESENT: RRR. ABSENT: diastolic murmur, rubs, systolic murmur Pulses: PRESENT: normal dorsalis pedis pul Vascular exam: PRESENT: normal capillary refill GI/Abdominal exam: PRESENT: normal bowel sounds, soft. ABSENT: distended, guarding, mass, organolmegaly, rebound, tenderness Extremities exam: PRESENT: calf tenderness, full ROM, other - Positive Homans on the right. ABSENT: clubbing, pedal edema Neurological exam: PRESENT: alert, awake, oriented to person, oriented to place, oriented to time, oriented to situation, CN II-XII grossly intact. ABSENT: motor sensory deficit Psychiatric exam: PRESENT: appropriate affect, normal mood. ABSENT: homicidal ideation, suicidal ideation Skin exam: PRESENT: dry, intact, warm. ABSENT: cyanosis, rash Results Laboratory Results: 02/22/19 08:33 02/22/19 09:43 02/22/19 02/22/19 02/22/19 08:33 08:33 09:43 Creatine Kinase Cancelled 156 H Troponin I Cancelled 02/22/19 10:22 Creatine Kinase Troponin I < 0.012 Impressions: Chest X-Ray 02/22/19 08:24 IMPRESSION: NO SIGNIFICANT RADIOGRAPHIC FINDING IN THE CHEST. Head CTA 02/22/19 08:46 IMPRESSION: NO CTA EVIDENCE OF STENOSIS OR ANEURYSM OF THE [place] OF [place]. Neck CTA 02/22/19 08:46 IMPRESSION: NORMAL CTA OF THE EXTRA-CRANIAL CAROTID AND VERTEBRAL ARTERIES. Brain MRI with MRA 02/24/19 00:00 IMPRESSION: 1. No noncontrast MR abnormality of the brain. No evidence of acute diffusion restricting infarction. 2. Unremarkable MR angiogram of the brain. No evidence of intracranial occlusion, stenosis, or aneurysm. EVIDENCE OF ACUTE STROKE: NO. Head CT 02/24/19 00:00 IMPRESSION: No acute intracranial abnormality. EVIDENCE OF ACUTE STROKE: NO. Head MRI 02/24/19 00:00 IMPRESSION: 1. No noncontrast MR abnormality of the brain. No evidence of acute diffusion restricting infarction. 2. Unremarkable MR angiogram of the brain. No evidence of intracranial occlusion, stenosis, or aneurysm. EVIDENCE OF ACUTE STROKE: NO. Assessment and Plan - Diagnosis (1) Acute CVA (cerebrovascular accident) Is this a current diagnosis for this admission?: Yes Plan: She has 3/5 weakness on the right arm and and 4/5 on the right leg. CT and CT of the head and neck are unremarkable. Will pursue an MRI. Will check cholesterol panel as well. She has noncompliance to her antihypertensive regimen however she does have a strong family history of early onset CVA, will pursue a hypercoagulable work-up. Will start patient on aspirin and statin. Will optimize blood pressure control. 02/23/2019-weakness has resolved at this time. Awaiting head CT. Also hypercoagulopathy work-up. We will continue to follow make changes plan of care as appropriate 02/24/2019-called in the patient's room this morning patient having left-sided facial droop with weakness. Unable to smile appropriately. Stat CT of the brain was obtained and negative per my reading awaiting official reading. Will obtain repeat MRI as well. May change plan of care based on findings. Continue aspirin therapy 02/25/2019-no acute findings on MRI. Most likely TIA in nature. Continue aspirin therapy (2) Hypertensive urgency Is this a current diagnosis for this admission?: Yes Plan: Initial BP in the 190/100s. She was given IV labetalol. Will give a dose of IV hydralazine. Will consider starting a nicardipine drip if her BP continue to be severely elevated. 02/23/2019-improved. Blood pressure 140s over 80s. We will continue to follow home medications at this time. 02/24/2019-blood pressure elevated this a.m. with probable CVA event. Continue PRN hydralazine and hold home medications. 02/25/2019-stable (3) Hyperlipidemia Is this a current diagnosis for this admission?: Yes Plan: 02/23/2019-continue treatment from home 02/24/2019-continue statin 02/25/2019-continue statin (4) HTN (hypertension) Is this a current diagnosis for this admission?: Yes Plan: 02/23/2019-stable at this time continue to follow 02/24/2019-stable 02/25/2019-stable (5) Right calf pain Is this a current diagnosis for this admission?: Yes Plan: 02/25/2019-positive Homans sign. Venous Doppler rule out DVT - Time Time Spent with patient: 15-24 minutes - Inpatient Certification Based on my medical assessment, after consideration of the patient's comorbidities, presenting symptoms, or acuity I expect that the services needed warrant INPATIENT care.: Yes I certify that my determination is in accordance with my understanding of Medicare's requirements for reasonable and necessary INPATIENT services [42 CFR 412.3e].: Yes Medical Necessity: Significant Comorbidiites Make Outpatient Treatment Too R isky, Need Close Monitoring Due to Risk of Patient Decompensation
--- NOTE | 2019-02-25 16:25 | XCELERA REPORT ---
[address] [facility] [address] Lower Extremity Venous Evaluation Procedure: Color flow and duplex imaging of the veins of the right lower extremity as well as the left Common Femoral vein. Right Sided Venous Evaluation Normal vessel filling wall to wall, compression and augmentation as well as Colour flow down to the infrageniculate veins. Left Sided Venous Evaluation The left common femoral vein is fully compressible. Spontaneous and phasic flow is present in the left common femoral vein. Interpretation Summary No duplex evidence of DVT or obstruction in the right lower extremity nor in the left Common Femoral vein. Name: CJ CLIFFORD Age: 48 yrs Gender: Female : 1970 Patient Status: Inpatient Patient Location: [facility]^A Study Date: 02/25/2019 02:36 PM Reason For Study: right calf pain Ordering Physician: EMERITA ODONNELL Performed By: Chacho Farias : EMERITA ODONNELL > Mazin Dumont
[2019-02-25] MEDS: ATORVASTATIN CALCIUM 40 MG TABLET PO SCH (21:40)
[2019-02-26] MEDS: HEPARIN SOD (PORCINE) 5,000 UNIT/ML 1 ML VIAL SUBCUT SCH (05:55)
[2019-02-26] MEDS: LOSARTAN POTASSIUM 50 MG TABLET PO SCH (09:19)
[2019-02-26] MEDS: ASPIRIN 81 MG TABLET, CHEWABLE PO SCH (09:19)
[2019-02-26] MEDS: LISINOPRIL 10 MG TABLET PO SCH (09:19)
[2019-02-26] MEDS: HYDROCHLOROTHIAZIDE 12.5 MG TABLET PO SCH (09:19)
--- NOTE | 2019-02-26 09:30 | PDOC DISCHARGE SUMMARY ---
Impression - Admit/DC Date/PCP Admission Date/Primary Care Provider: 02/22/19 13:02 Discharge Date: 02/26/19 - Discharge Diagnosis (1) Acute CVA (cerebrovascular accident) Is this a current diagnosis for this admission?: Yes (2) Hypertensive urgency Is this a current diagnosis for this admission?: Yes (3) Hyperlipidemia Is this a current diagnosis for this admission?: Yes (4) HTN (hypertension) Is this a current diagnosis for this admission?: Yes (5) Right calf pain Is this a current diagnosis for this admission?: Yes - Additional Information Resuscitation Status: Full Code Discharge Diet: As Tolerated Discharge Activity: Activity As Tolerated Prescriptions: Atorvastatin Calcium [Lipitor 40 mg Tablet] 40 mg PO QHS #30 tablet Home Medications: Lisinopril/Hydrochlorothiazide [Lisinopril-Hctz 20-12.5 mg Tab] 1 each PO DAILY 02/22/19 Aspirin [Aspirin 81 mg Chewable Tablet] 81 mg PO DAILY tab.chew 02/26/19 Atorvastatin Calcium [Lipitor 40 mg Tablet] 40 mg PO QHS #30 tablet 02/26/19 Additional Information: Follow-up primary care in 1 week History of Present Illiness History of Present Illness: CJ CLIFFORD is a 48 year old female who presented to the ER with right-sided weakness and slurred speech. Hospital Course Hospital Course: Patient is a pleasant 50-year-old female presented to the ER with past medical history hypertension and hyperlipidemia with right-sided weakness and slurred speech. Patient's daughters at bedside state patient was apparently fine and went to bed around midnight. They note she woke up around 6 AM was having slurred speech and was not able to move her right arm and right leg. In the ED are CT the head neck were unremarkable. She was noted to have significant elevated blood pressure. Patient was admitted underwent further diagnostic tests including MRI x2 which were negative. Patient also complained of right calf pain for which I did a Doppler which was negative as well. At this time patient improves official return home I will continue her on atorvastatin 40 mg p.o. daily and aspirin. She will follow-up primary care in 1 week. Physical Exam Vital Signs: Temp Pulse Resp BP Pulse Ox 98.0 F 83 16 178/92 H 99 02/26/19 06:43 02/26/19 06:43 02/26/19 06:43 02/26/19 06:43 02/26/19 06:43 Intake & Output 02/25/19 02/26/19 02/27/19 06:59 06:59 06:59 Intake Total 875 1080 Output Total 3 Balance 875 1077 Weight 86.9 kg 89.3 kg General appearance: PRESENT: no acute distress, well-developed, well-nourished Head exam: PRESENT: atraumatic, normocephalic Eye exam: PRESENT: conjunctiva pink, EOMI, PERRLA. ABSENT: scleral icterus Ear exam: PRESENT: normal external ear exam Mouth exam: PRESENT: moist, tongue midline Neck exam: ABSENT: carotid bruit, JVD, lymphadenopathy, thyromegaly Respiratory exam: PRESENT: clear to auscultation michael. ABSENT: rales, rhonchi, wheezes Cardiovascular exam: PRESENT: RRR. ABSENT: diastolic murmur, rubs, systolic murmur Pulses: PRESENT: normal dorsalis pedis pul Vascular exam: PRESENT: normal capillary refill GI/Abdominal exam: PRESENT: normal bowel sounds, soft. ABSENT: distended, guarding, mass, organolmegaly, rebound, tenderness Rectal exam: PRESENT: deferred Extremities exam: PRESENT: full ROM. ABSENT: calf tenderness, clubbing, pedal edema Neurological exam: PRESENT: alert, awake, oriented to person, oriented to place, oriented to time, oriented to situation, CN II-XII grossly intact. ABSENT: motor sensory deficit Psychiatric exam: PRESENT: appropriate affect, normal mood. ABSENT: homicidal ideation, suicidal ideation Skin exam: PRESENT: dry, intact, warm. ABSENT: cyanosis, rash Results Laboratory Results: WBC 7.0 10^3/uL (4.0-10.5) 02/22/19 08:33 RBC 4.55 10^6/uL (3.72-5.28) 02/22/19 08:33 Hgb 10.8 g/dL (12.0-15.5) L 02/22/19 08:33 Hct 33.5 % (36.0-47.0) L 02/22/19 08:33 MCV 74 fl (80-97) L 02/22/19 08:33 MCH 23.8 pg (27.0-33.4) L 02/22/19 08:33 MCHC 32.3 g/dL (32.0-36.0) 02/22/19 08:33 RDW 18.6 % (11.5-14.0) H 02/22/19 08:33 Plt Count 339 10^3/uL (150-450) 02/22/19 08:33 Lymph % (Auto) 35.5 % (13-45) 02/22/19 08:33 [place] % (Auto) 6.8 % (3-13) 02/22/19 08:33 Eos % (Auto) 1.0 % (0-6) 02/22/19 08:33 Baso % (Auto) 2.5 % (0-2) H 02/22/19 08:33 Absolute Neuts (auto) 3.8 10^3/uL (1.7-8.2) 02/22/19 08:33 Absolute Lymphs (auto) 2.5 10^3/uL (0.5-4.7) 02/22/19 08:33 Absolute Monos (auto) 0.5 10^3/uL (0.1-1.4) 02/22/19 08:33 Absolute Eos (auto) 0.1 10^3/uL (0.0-0.6) 02/22/19 08:33 Absolute Basos (auto) 0.2 10^3/uL (0.0-0.2) 02/22/19 08:33 Seg Neutrophils % 54.2 % (42-78) 02/22/19 08:33 PT 15.8 SEC (11.4-15.4) H 02/22/19 08:33 PT Diluted 42.6 sec (0.0-55.0) 02/22/19 14:42 Dilute PT Confrm Ratio 1.30 Ratio (0.00-1.40) 02/22/19 14:42 INR 1.25 02/22/19 08:33 APTT 23.4 SEC (23.5-35.8) L 02/22/19 08:33 Thrombin Time 22.0 sec (0.0-23.0) 02/22/19 14:42 Lupus Anticoag aPTT 27.0 sec (0.0-51.9) 02/22/19 14:42 Dil Olegario Viper Venom 36.4 sec (0.0-47.0) 02/22/19 14:42 Lupus Anticoag Interp Comment: (.) 02/22/19 14:42 Sodium 139.9 mmol/L (137-145) 02/22/19 09:43 Potassium 3.6 mmol/L (3.6-5.0) 02/22/19 09:43 Chloride 104 mmol/L (98-107) 02/22/19 09:43 Carbon Dioxide 26 mmol/L (22-30) 02/22/19 09:43 Anion Gap 10 (5-19) 02/22/19 09:43 BUN 10 mg/dL (7-20) 02/22/19 09:43 Creatinine 0.73 mg/dL (0.52-1.25) 02/22/19 09:43 Est GFR ( Amer) > 60 (>60) 02/22/19 09:43 Est GFR (Non-Af Amer) Cancelled 02/22/19 08:33 Est GFR (MDRD) Non-Af > 60 (>60) 02/22/19 09:43 Glucose 110 mg/dL (75-110) 02/22/19 09:43 POC Glucose 115 mg/dL (70-110) H 02/22/19 08:26 Calcium 9.0 mg/dL (8.4-10.2) 02/22/19 09:43 Total Bilirubin 0.3 mg/dL (0.2-1.3) 02/22/19 09:43 Direct Bilirubin 0.2 mg/dL (0.0-0.4) 02/22/19 09:43 Neonat Total Bilirubin Not Reportable 02/22/19 09:43 Neonat Direct Bilirubin Not Reportable 02/22/19 09:43 Neonat Indirect Bili Not Reportable 02/22/19 09:43 AST 24 U/L (14-36) 02/22/19 09:43 ALT 13 U/L (<35) 02/22/19 09:43 Alkaline Phosphatase 107 U/L (38-126) 02/22/19 09:43 Creatine Kinase 156 U/L (30-135) H 02/22/19 09:43 Troponin I < 0.012 ng/mL 02/22/19 10:22 Total Protein 7.7 g/dL (6.3-8.2) 02/22/19 09:43 Albumin 3.8 g/dL (3.5-5.0) 02/22/19 09:43 Triglycerides 71 mg/dL (<150) 02/22/19 09:43 Cholesterol 221.75 mg/dL (0-200) H 12 09:43 LDL Cholesterol Direct 164 mg/dL (<100) H 02/22/19 09:43 VLDL Cholesterol 14.0 mg/dL (10-31) 02/22/19 09:43 HDL Cholesterol 34 mg/dL (>40) L 02/22/19 09:43 EGFR Cancelled 02/22/19 08:33 Urine Color STRAW 02/22/19 09:42 Urine Appearance CLEAR 02/22/19 09:42 Urine pH 7.0 (5.0-9.0) 02/22/19 09:42 Ur Specific [place] 1.009 02/22/19 09:42 Urine Protein NEGATIVE mg/dL (NEGATIVE) 02/22/19 09:42 Urine Glucose (UA) NEGATIVE mg/dL (NEGATIVE) 02/22/19 09:42 Urine Ketones NEGATIVE mg/dL (NEGATIVE) 02/22/19 09:42 Urine Blood NEGATIVE (NEGATIVE) 02/22/19 09:42 Urine Nitrite NEGATIVE (NEGATIVE) 02/22/19 09:42 Urine Bilirubin NEGATIVE (NEGATIVE) 02/22/19 09:42 Urine Urobilinogen NEGATIVE mg/dL (<2.0) 02/22/19 09:42 Ur Leukocyte Esterase NEGATIVE (NEGATIVE) 02/22/19 09:42 Urine WBC (Auto) 0 /HPF 02/22/19 09:42 Urine RBC (Auto) 0 /HPF 02/22/19 09:42 Squamous Epi Cells Auto 3 /HPF 02/22/19 09:42 Urine Mucus (Auto) RARE /LPF 02/22/19 09:42 Urine Ascorbic Acid NEGATIVE (NEGATIVE) 02/22/19 09:42 Urine HCG, Qual NEGATIVE (NEGATIVE) 02/22/19 09:42 Anti-Cardiolipin IgG Ab <9 GPL U/mL (0-14) 02/22/19 14:42 Anti-Cardiolipin IgA Ab <9 APL U/mL (0-11) 02/22/19 14:42 Anti-Cardiolipin IgM Ab 12 MPL U/mL (0-12) 02/22/19 14:42 02/22/19 02/22/19 08:33 10:22 Troponin I Cancelled < 0.012 Impressions: Head CT 02/22/19 08:20 IMPRESSION: No CT evidence of acute stroke or hemorrhage. EVIDENCE OF ACUTE STROKE: NO. Chest X-Ray 02/22/19 08:24 IMPRESSION: NO SIGNIFICANT RADIOGRAPHIC FINDING IN THE CHEST. Head CTA 02/22/19 08:46 IMPRESSION: NO CTA EVIDENCE OF STENOSIS OR ANEURYSM OF THE [place]. Neck CTA 02/22/19 08:46 IMPRESSION: NORMAL CTA OF THE EXTRA-CRANIAL CAROTID AND VERTEBRAL ARTERIES. Head MRI 02/22/19 16:25 IMPRESSION: No evidence of acute infarct or other intracranial abnormality. EVIDENCE OF ACUTE STROKE: NO. Brain MRI with MRA 02/24/19 00:00 IMPRESSION: 1. No noncontrast MR abnormality of the brain. No evidence of acute diffusion restricting infarction. 2. Unremarkable MR angiogram of the brain. No evidence of intracranial occlusion, stenosis, or aneurysm. EVIDENCE OF ACUTE STROKE: NO. Head CT 02/24/19 00:00 IMPRESSION: No acute intracranial abnormality. EVIDENCE OF ACUTE STROKE: NO. Head MRI 02/24/19 00:00 IMPRESSION: 1. No noncontrast MR abnormality of the brain. No evidence of acute diffusion restricting infarction. 2. Unremarkable MR angiogram of the brain. No evidence of intracranial occlusion, stenosis, or aneurysm. EVIDENCE OF ACUTE STROKE: NO. Stroke Is this a Stroke Patient?: No Acute Heart Failure - Is this a Heart Failure Patient?: No
[2019-02-26 09:50] VITALS: BP 147/94
[2019-02-26 16:37] LABS: PROTEIN C ANTIGEN 104 % (60-150)
[2019-02-26 16:40] LABS: PROTEIN C ACTIVITY 115 % (73-180)
== END 2019-02-26 11:15 | disposition home or self-care (01) | DRG 69 ==
LOC: ER 08:10 → EH 13:02 → 3N 16:22
PROVIDERS: ADMIT Internal Medicine; ATTEND Internal Medicine
DX: G45.9 Transient cerebral ischemic attack, unspecified (principal); D64.9 Anemia, unspecified; I16.0 Hypertensive urgency; E78.5 Hyperlipidemia, unspecified; M79.661 Pain in right lower leg; R53.1 Weakness; R47.81 Slurred speech; I10 Essential (primary) hypertension; R29.810 Facial weakness; R29.709 NIHSS score 9; Z79.82 Long term (current) use of aspirin; Z91.14 Patient's other noncompliance with medication regimen; Z82.3 Family history of stroke; Z82.49 Family history of ischemic heart disease and other diseases of the circulatory system
CPT/HCPCS: 36415; 70450; 70496; 70498; 70544; 70551; 71045; 80053; 80061; 81001; 81025; 82550; 82962; 83520; 84484; 85025; 85302; 85597; 85598; 85610; 85613; 85730; 85732; 86146; 86147; 86148; 86225; 86235; 86849; 93005; 93010; 93971; 96374; 96375; 99285; J0360; J1644; J1885; J3010; J3490